=== PATIENT | female | born 1950 | race Caucasian/White ===

== ENCOUNTER → 2018-04-09 | Outpatient (CLI) | payer MEDICARE, OTHER ==
[~2018-04-09] MED LIST: ESCI10TA8 PO; FURO-45 PO; IBUP200C74 PO; LOSA-54 PO; RANI-366 PO
--- NOTE | 2018-04-09 11:22 | RADIOLOGY IMAGING REPORT ---
FACILITY: [facility] PATIENT NAME: Rosey Branch : 1950 MR: [id number] V: [id number] EXAM DATE: ORDERING PHYSICIAN: SMILEY LOVE TECHNOLOGIST: Location: [facility] Patient: Rosey Branch : 1950 Visit/Account:[id number] Date of Sevice: 04/09/2018 DEXA Scan Clinical history: Postmenopausal. Comparison: DEXA scan from 05/04/2006. LUMBAR SPINE: The bone mineral density (BMD) measured from L1-L4 correlates with a Z-score of 0.9 and a T-score of -0.4 which is Normal as defined by the World Health Organization. The corresponding risk of fracture in the lumbar spine is Not increased compared with a young adult reference population. This value h as increased by 9.6 % since the prior study. More than 5% change is considered significant. HIP: Bone mineral density (BMD) measured in the LEFT total hip region correlates with a Z-score 0.2 and a T-score of -0.2 which is normal as defined by the World Health Organization. The corresponding risk of fracture in the hip is Not i ncreased compared to a young adult reference population. This value has decrease by 6.8 % since the p rior study. More than 5% change is considered significant. T score left femoral neck -0.9 Bone mineral density (BMD) measured in the Femoral Neck region measures 0.909 g/cm?. IMPRESSION: 1. Lumbar spine: Normal. There has been 9.6% increase in the bone mineral density since the previou s exam. 2. Left Total Hip: Normal. There has been 6.8% decrease in the bone mineral density since the previ ous exam. 3. Femoral Neck: Bone Mineral Density is 0.909 g/cm? The next DEXA scan of this patient should include the following sites: L1-L4 and the left hip. FRAX? WHO Fracture Risk Assessment Tool link: <http://www.shef.ac.uk/FRAX/tool.jsp?locationValue=9> PLEASE NOTE: 1) The World Health Organization defines low BMD as follows: T-score Normal > -1 Osteopenia < -1 and > -2.5 Osteoporosis < -2.5 without fractures Established osteoporosis < -2.5 with fractures 2) In general, you may wish to consider: Diagnosis Treatment Follow-up DEXA Normal BMD Prevention 2-3 years Osteopenia Prevention/therapy 1-2 years Osteoporosis Therapy Yearly 3) Fracture risk estimated from the T-score is more accurate for vertebral fractures (often spontane ous) than for hip fractures. Report Dictated By: Rossy Gore MD at 04/09/2018 11:17 AM Report E-Signed By: Rossy Gore MD at 04/09/2018 11:18 AM WSN:[email or web address]
--- NOTE | 2018-04-09 16:24 | RADIOLOGY IMAGING REPORT ---
FACILITY: [facility] [place] PATIENT NAME: VIVIENNE TRAN : [id number] MR: [id number] V: [id number] EXAM DATE: [id number] ORDERING PHYSICIAN: SMILEY LOVE TECHNOLOGIST: Alia Khan PROCEDURE:BILATERAL DIGITAL SCREENING MAMMOGRAM WITH CAD ASSISTED INTERPRETATION & 3D TOMOSYNTHESIS COMPARISON:Prior mammograms 02/02/16, 03/05/15, 12/11/13. INDICATIONS:SCREENING FINDINGS: The breasts are almost entirely fatty. The parenchymal pattern has remained stable allowing for difference in mammographic technique & patient positioning. There is no evidence of malignant appearing mass, malignant appearing calcifications or other secondary sign of malignancy in either breast. DIAGNOSTIC CATEGORY 1--NEGATIVE. RECOMMENDATIONS: ROUTINE MAMMOGRAM AND CLINICAL EVALUATION. IMPRESSION: BIRADS 1: Negative. No significant abnormality is seen. Dictated by: Rossy Gore M.D. on 04/09/2018 at 15:02 Transcribed by: CANDE on 04/09/2018 at 15:19 Approved by: Rossy Gore M.D. on 04/09/2018 at 16:23 [facility]
== END ==
LOC: MAMO 00:38
PROVIDERS: ATTEND Obstetrics & Gynecology
DX: Z13.820 Encounter for screening for osteoporosis (principal); Z12.31 Encounter for screening mammogram for malignant neoplasm of breast
CPT/HCPCS: 77063; 77067; 77080

== ENCOUNTER → 2018-04-09 | Outpatient (CLI) | payer OTHER, MEDICARE | LOC: LAB 11:27 | PROVIDERS: ATTEND Obstetrics & Gynecology | DX: R31.29 Other microscopic hematuria (principal) | CPT/HCPCS: 87088 ==